=== PATIENT | female | born 1945 | race American Indian/Alaskan Native ===

== ENCOUNTER 2017-08-18 10:44 | Outpatient (CLI) | payer MEDICARE ==
--- NOTE | 2017-08-18 11:18 | Mammography Report ---
LEFT DIGITAL DIAGNOSTIC MAMMOGRAM : 08/18/17 10:44:00 CLINICAL: Recalled for asymmetry. COMPARISON:08/04/17 screening FINDINGS: ML and spot compression MLO and cc views were performed. Satisfactory effacement of the previously described asymmetry on the spot views. IMPRESSION: Negative Mammogram. BI-RADS CATEGORY: 1 -- Negative RECOMMENDATION: Routine mammographic screening in one year. ACR BI-RADS MAMMOGRAPHIC CODES: 0 = Needs additional imaging evaluation; 1 = Negative; 2 = Benign; 3 = Probably benign; 4 = Suspicious; 5 = Malignant; 6 = Known biopsy-proven malignancy COMMENT: 1. Dense breast tissue, i.e., adenosis, fibrocystic changes, etc., may obscure an underlying neoplasm. 2. Approximately 10% of cancers are not detected with mammography. 3. A negative mammography report should not delay biopsy if a clinically suspicious mass is present. COMMENT: Patient follow-up letters are generated via our [facility] application.
== END 2017-08-18 10:45 | disposition home or self-care (01) ==
LOC: MAMMO 10:44
PROVIDERS: ATTEND Obstetrics & Gynecology
DX: R92.8 Other abnormal and inconclusive findings on diagnostic imaging of breast (principal)
CPT/HCPCS: G0206-LT

== ENCOUNTER 2019-08-22 10:26 | Outpatient (CLI) | payer MEDICARE ==
--- NOTE | 2019-08-23 10:26 | Mammography Report ---
DIGITAL SCREENING MAMMOGRAM WITH CAD, 08/22/2019 INDICATION: Routine screening mammography. TECHNIQUE: Digital bilateral 2D mammography was obtained in the craniocaudal and mediolateral obliq ue projections. This examination was interpreted with the benefit of Computer-Aided Detection analysi s. COMPARISON: 08/17/2018 FINDINGS: Breast Density: The breasts are heterogeneously dense, which may obscure small masses. There is no evidence of dominant mass, suspicious calcifications or architectural distortion in eithe r breast. IMPRESSION: No mammographic evidence of malignancy. Follow up recommendation: Routine yearly BI-RADS Category 1: Negative. A "normal" or negative report should not discourage follow up or biopsy of a clinically significant f inding. A written summary of these findings will be mailed to the patient. The patient will be entered into a mammography reporting system which will generate a reminder letter for the patient's next appointmen t at the appropriate interval. The [employer] recommends yearly mammograms starting at age 40 and continuing as l joaquín as a woman is in good health. Breast MRI is recommended for women with an approximate 20-25% or greater lifetime risk of breast cancer, including women with a strong family history of breast or ova raji cancer or who have been treated for Hodgkin's disease. Signer Name: Hayes Frankel MD Signed: 08/23/2019 10:21 AM Workstation Name: [id number]
== END 2019-08-22 10:27 | disposition home or self-care (01) ==
LOC: MAMMO 10:26
PROVIDERS: ATTEND Obstetrics & Gynecology
DX: Z12.31 Encounter for screening mammogram for malignant neoplasm of breast (principal)
CPT/HCPCS: 77067

== ENCOUNTER 2020-08-28 10:47 | Outpatient (CLI) | payer MEDICARE ==
--- NOTE | 2020-08-29 07:55 | Mammography Report ---
DIGITAL SCREENING MAMMOGRAM WITH CAD, 08/29/2020 CLINICAL INFORMATION / INDICATION: Routine screening mammography. TECHNIQUE: Digital bilateral 2D mammography was obtained in the craniocaudal and mediolateral obliqu e projections. This examination was interpreted with the benefit of Computer-Aided Detection analysis . COMPARISON: 08/22/2019 FINDINGS: Breast Density: There are scattered areas of fibroglandular density. No dominant mass, suspicious calcifications, or architectural distortion in either breast. IMPRESSION: No mammographic evidence of malignancy. Follow up recommendation: Routine yearly BI-RADS Category 1: Negative. A "normal" or negative report should not discourage follow up or biopsy of a clinically significant f inding. A written summary of these findings will be mailed to the patient. The patient will be entered into a mammography reporting system which will generate a reminder letter for the patient's next appointmen t at the appropriate interval. The [employer] recommends yearly mammograms starting at age 40 and continuing as l joaquín as a woman is in good health. Breast MRI is recommended for women with an approximate 20-25% or greater lifetime risk of breast cancer, including women with a strong family history of breast or ova raji cancer or who have been treated for Hodgkin's disease. Signer Name: Juan Edwards MD Signed: 08/29/2020 7:51 AM Workstation Name: [id number]
== END 2020-08-28 10:48 | disposition home or self-care (01) ==
LOC: MAMMO 10:47
PROVIDERS: ATTEND Obstetrics & Gynecology
DX: Z12.31 Encounter for screening mammogram for malignant neoplasm of breast (principal); N64.89 Other specified disorders of breast
CPT/HCPCS: 77067

== ENCOUNTER 2021-09-05 10:53 | Outpatient (CLI) | payer MEDICARE ==
--- NOTE | 2021-09-06 16:28 | Mammography Report ---
DIGITAL SCREENING MAMMOGRAM WITH CAD, 09/05/2021 CLINICAL INFORMATION / INDICATION: Routine screening mammography. TECHNIQUE: Digital bilateral 2D mammography was obtained in the craniocaudal and mediolateral obliqu e projections. This examination was interpreted with the benefit of Computer-Aided Detection analysis . COMPARISON: 08/22/2019 FINDINGS: Breast Density: There are scattered areas of fibroglandular density. No dominant mass, suspicious calcifications, or architectural distortion in either breast. No interval change. IMPRESSION: No mammographic evidence of malignancy. Follow up recommendation: Routine yearly BI-RADS Category 1: Negative. A "normal" or negative report should not discourage follow up or biopsy of a clinically significant f inding. A written summary of these findings will be mailed to the patient. The patient will be entered into a mammography reporting system which will generate a reminder letter for the patient's next appointmen t at the appropriate interval. The [employer] recommends yearly mammograms starting at age 40 and continuing as l joaquín as a woman is in good health. Breast MRI is recommended for women with an approximate 20-25% or greater lifetime risk of breast cancer, including women with a strong family history of breast or ova raji cancer or who have been treated for Hodgkin's disease. Signer Name: Monet Nelson MD Signed: 09/06/2021 4:24 PM Workstation Name: [id number]
== END 2021-09-05 10:54 | disposition home or self-care (01) ==
LOC: MAMMO 10:53
PROVIDERS: ATTEND Obstetrics & Gynecology
DX: Z12.31 Encounter for screening mammogram for malignant neoplasm of breast (principal)
CPT/HCPCS: 77067